=== PATIENT | male | born 1985 | race Caucasian/White ===

== ENCOUNTER 2022-12-24 12:57 | Inpatient (IN) | payer BC, MEDICAID, SELFPAY ==
[2022-12-24 13:07] VITALS: BP 132/81; PULSE 63; RESP 16; TEMP 36.4; O2SAT 100
[2022-12-24 13:15] VITALS: BMI 24.4
[2022-12-24 14:00] VITALS: BP 132/81; PULSE 63; RESP 16; TEMP 36.4; O2SAT 100
--- NOTE | 2022-12-24 14:18 | PC.NURSE ---
Patient arrived from [facility] in [place], [place] calm and cooperative. He denies current si/hi and avh. He endorses current alcohol and methamphetamine abuse. He says he drinks a fifth of whiskey daily and has used methamphetamine daily for the last 3 days. Patient states he had not drank in 4 years until 2 months ago and that he had not utilized meth since he was in high school until 3 days ago. When asked what triggered him to drink and use again he became evasive and stated it wasn't worth talking about or drinking about. He does express interest in a rehabilitation facility. Patient says he received treatment at [facility] in 2005, but that he doesn't consider it successful because it was court appointed and not his choice to go. When given report from [facility] the RN stated he had arrived with suicidal ideations with a plan to shoot himself. However, he does not express this at this time.
[2022-12-24] MEDS: LORazepam 2 mg Tablet PO ×4 (18:32→23:01)
[2022-12-24] MEDS: ondansetron 4 MG Tablet PO (18:32)
[2022-12-24] MEDS: acetaminophen 325 mg Tablet 650 MG PO (18:32)
[2022-12-24] MEDS: nicotine 21 mg Patch 1 PATCH TRANSDERMA (18:32)
[2022-12-24 19:32] VITALS: BP 145/81; PULSE 60; RESP 16; TEMP 36.8; O2SAT 99
[2022-12-24] MEDS: losartan 50 mg Tablet 100 MG PO (20:36)
[2022-12-25 06:00] VITALS: BP 129/72; PULSE 75; RESP 16; TEMP 36.6; O2SAT 97
[2022-12-25] MEDS: multivitamin therapeutic Tablet 1 TAB PO (09:26)
[2022-12-25] MEDS: thiamine 100 mg Tablet PO (09:26)
[2022-12-25] MEDS: folic acid 1 mg Tablet PO (09:26)
[2022-12-25] MEDS: duloxetine 30 mg Capsule PO (13:13)
[2022-12-25] MEDS: LORazepam 2 mg Tablet PO ×3 (13:29→20:09)
[2022-12-25] MEDS: ibuprofen 600 mg Tablet PO (13:29)
[2022-12-25 14:00] VITALS: BP 146/75; PULSE 84; RESP 16; TEMP 36.7; O2SAT 95
--- NOTE | 2022-12-25 15:54 | P.NPUHP_ITS ---
Providers/Chief Complaint Admitting Physician: Tj Pappas MD Chief Complaint: SI/ETOH HPI NPU History of Present Illness Vincent Cummings is a 37 year old male with a history of multiple inpatient hospitalizations who presented to the emergency department at [facility] with worsening depression and suicidal ideation with a plan to shoot himself with his firearm. The patient reports a history of social anxiety disorder along with episodes of depression. He had endorsed having worsening mood over the past few months with increased suicidal thoughts over the last few weeks. He reports feelings of hopelessness low energy anhedonia apathy and loss of appetite. He reports crying more frequently and reports increased social isolation. He also reported having difficulties with managing chronic anxiety stating that he often has muscle tension and difficulties falling asleep while being unable to control his worries. The patient reports having difficulties with attention and reports that he often feels tired and reports diminished appetite. He endorses low energy and reports difficulties with feeling as if he is the center of attention wherever he goes. He reports that he has never attempted to kill himself although he has made threats before. He had reported that he has been managing his anxiety and depression by drinking. He reports drinking about 1/5 of alcohol daily for over 15 years. He reports that he has had a history of severe alcohol withdrawal symptoms including shakes. He reports that he had been sober for 4 years but relapsed earlier this year. The patient reports that he has had problems with being in large crowds. He reports that he often has feelings of guilt and reports declining energy. He had reported a series of multiple medication trials that have been largely unsuccessful in managing his anxiety and depression. Inpatient psychiatric history: The patient had reported over 30 inpatient hospitalizations, previous records had indicated that he had been treated in [place] in October 2022 for depression. Outpatient psychiatric history: Patient reports receiving treatment at [facility] under Vee Sahni for medication management only. Medications: Ramelteon, Wellbutrin XL 300 mg daily, olmesartan 40 mg at night, gabapentin. The patient had reported having been noncompliant with his Wellbutrin and reports previous trials of antidepressants to treat anxiety and depression included Zoloft and Celexa with sexual side effects reported. Medical history: None Surgical history: None Allergies: No known drug allergy Family psychiatric history: Social anxiety disorder in 2 siblings. Legal history: Previous history of multiple DUI's Social history: The patient was born in [place] to an intact family. He had reported having been raised in [place] and had completed high school. He had reported having extreme anxiety throughout his school history. He had graduated from high school and had done well academically. He had completed additional technical training at [email or web address] but did not finish his degree. He has 2 siblings and is the middle child. He reported no history of sexual physical or emotional abuse. He had reported that he had begun use of alcohol as a teen and denied any other substance use. He reports that he has never been and has no children. He reports that he currently rents and lives in [place] and his family supports are in [facility]. Meds NPU Home Medications Medication Instructions Recorded Confirmed Last Taken Type olmesartan 40 mg tablet 40 mg PO BEDTIME 12/24/22 12/24/22 12/23/22 21:00 History Allergies Allergy/AdvReac Type Severity Reaction Status Date / Time No Known Allergies Allergy Verified 12/24/22 14:24 Mental Status Exam MSE Comments: The patient is a casually dressed slightly overweight white male who appeared his stated age. He had minimal eye contact. He was alert and oriented to person place time and situation. His gait appeared adequate. His hygiene was fair. There is no evidence of any abnormal involuntary motor movements appreciated. His speech was monotone in quality and normal in rate and rhythm. His mood was described as depressed. His affect was mood congruent and restricted in range. There was moderate psychomotor retardation. His thought process was linear logical and goal-directed. His thought content showed evidence of suicidal ideation with no active plan. He endorsed no homicidal ideation. He did not appear to be responding to internal stimuli. There was no clear evidence of delusional thinking. His attention span appeared fair.? His insight is poor.? His judgment is poor.? His impulse control appeared limited at this time.? Vitals/I&O/Wt Last Vital Signs Temp 98.1 F 12/25/22 14:00 Pulse 84 12/25/22 14:00 Resp 16 12/25/22 14:00 BP 146/75 12/25/22 14:00 Pulse Ox 95 12/25/22 14:00 O2 Del Method Room Air 12/25/22 14:00 Weight last 48 hrs Weight 83.915 kg A&P Assessment and plan (1) Major depressive disorder, recurrent: (2) Social anxiety disorder: (3) Generalized anxiety disorder: (4) Alcohol dependence: Plan 37-year-old white male with history of longstanding depression social anxiety disorder and generalized anxiety disorder along with significant alcohol abuse admitted with suicidal ideation. The patient may be agreeable to a dual diagnosis program focusing both patient's depression as well as his significant alcohol use. 1. Encourage individual, group and milieu therapy. 2. Recommend sober living treatment at the highest level of care to which the patient is willing to commit. 3. Continue q-15 minute checks for safety.? 4. CIWA protocol. 5. D/C wellbutrin, restart ramelteon, and initiate duloxetine to target depression/anxiety. 6. Trial of Naltrexone 50mg daily with plan to place patient on vivitrol IM. Involuntary Hold Information 96 Hour Hold: 96 Hour Involuntary Admission: No Attestations NPU Medical Necessity Statement*: Inpatient hospitalization is medically necessary and deemed to be the clinically appropriate intervention at this time. We will monitor and initiate medications while making changes as indicated. He will be in the hospital for over 2 midnights. The patient's likely length of stay is 4 to 6 days. Coding Level of Care Code Acute Code for [facility] Fwd Diagnoses Major depressive disorder, recurrent F33.9 Social anxiety disorder F40.10 Generalized anxiety disorder F41.1 Alcohol dependence F10.20
[2022-12-25] MEDS: ondansetron 4 MG Tablet PO (16:19)
[2022-12-25] MEDS: acetaminophen 325 mg Tablet 650 MG PO ×2 (16:19→20:08)
[2022-12-25 20:07] VITALS: BP 137/79; PULSE 52; RESP 16; TEMP 36.9; O2SAT 96
[2022-12-25] MEDS: losartan 50 mg Tablet 100 MG PO (20:07)
[2022-12-25] MEDS: nicotine 2 mg Gum BUCCAL (20:52)
[2022-12-26 06:00] VITALS: BP 121/54; PULSE 48; RESP 16; TEMP 36.8; O2SAT 97
[2022-12-26] MEDS: thiamine 100 mg Tablet PO (08:22)
[2022-12-26] MEDS: multivitamin therapeutic Tablet 1 TAB PO (08:22)
[2022-12-26] MEDS: folic acid 1 mg Tablet PO (08:22)
[2022-12-26] MEDS: nicotine 21 mg Patch 1 PATCH TRANSDERMA (08:28)
[2022-12-26] MEDS: ibuprofen 600 mg Tablet PO (11:11)
--- NOTE | 2022-12-26 11:52 | PC.NURSE ---
pt wanting his phone charged.
--- NOTE | 2022-12-26 11:54 | PC.NURSE ---
removed nicotine patch.
[2022-12-26 14:00] VITALS: BP 121/81; PULSE 67; RESP 16; TEMP 36.6; O2SAT 98
[2022-12-26] MEDS: nicotine 4 mg lozenge MUCOUS MEM ×4 (14:36→21:08)
--- NOTE | 2022-12-26 15:59 | W.PM.NPUPNS ---
Subjective NPU Subjective: 37-year-old white male with social anxiety disorder major depressive disorder and alcohol dependence admitted with suicidal ideation in the context of continued alcohol use. The patient had continued to withdraw off of alcohol requiring the presence of Ativan to help with withdrawal symptoms. He had been isolating in bed most of the day and had refused groups. The patient reported continued depression but reported that he was not feeling suicidal currently. The patient had endorsed a long history of depression and social isolation. He had expressed some concern about his struggles with being around others. He had described having struggles with feeling as if you were the center of attention. The patient had expressed interest in consideration for intense psychotherapy including cognitive behavioral therapy to target his anxiety and depression. Mental Status Exam MSE Comments: The patient is a casually dressed slightly overweight white male who appeared his stated age. He had minimal eye contact. He was alert and oriented to person place time and situation. His gait appeared adequate. His hygiene was fair. There is no evidence of any abnormal involuntary motor movements appreciated. His speech was monotone in quality and normal in rate and rhythm. His mood was described as depressed. His affect was mood congruent and restricted in range. There was significant psychomotor retardation. His thought process was linear logical and goal-directed. His thought content showed evidence of suicidal ideation with no active plan. He endorsed no homicidal ideation. He did not appear to be responding to internal stimuli. There was no clear evidence of delusional thinking. His attention span was fair. His insight remains poor. His judgment and impulse control remains poor. Vitals/I&O/Wt Last Vital Signs Temp 98 F 12/26/22 14:00 Pulse 67 12/26/22 14:00 Resp 16 12/26/22 14:00 BP 121/81 12/26/22 14:00 Pulse Ox 98 12/26/22 14:00 O2 Del Method Room Air 12/26/22 14:00 A&P Assessment and plan (1) Major depressive disorder, recurrent: (2) Social anxiety disorder: (3) Generalized anxiety disorder: (4) Alcohol dependence: Plan 37-year-old white male with history of longstanding depression social anxiety disorder and generalized anxiety disorder along with significant alcohol abuse admitted with suicidal ideation. The patient may be agreeable to a dual diagnosis program focusing both patient's depression as well as his significant alcohol use. 1. Encourage individual, group and milieu therapy. 2. Recommend sober living treatment at the highest level of care to which the patient is willing to commit. 3. Continue q-15 minute checks for safety.? 4. CIWA protocol. 5. Discontinued Cymbalta with patient complaining of abdominal discomfort. He has a history of multiple medication trials for treatment of depression. 6. The patient is refusing treatment for alcohol dependence with medications as he stated he did not wish to be on naltrexone.. Involuntary Hold Information 96 Hour Hold: 96 Hour Involuntary Admission: No Attestations NPU Medical Necessity Statement*: Inpatient hospitalization is medically necessary and deemed to be the clinically appropriate intervention at this time. We will monitor and initiate medications while making changes as indicated. The patient's likely length of stay is 3-5 days. Coding Level of Care Code Acute Code for g Fwd Diagnoses Major depressive disorder, recurrent F33.9 Social anxiety disorder F40.10 Generalized anxiety disorder F41.1 Alcohol dependence F10.20
[2022-12-26 19:22] VITALS: BP 158/89
[2022-12-26] MEDS: losartan 50 mg Tablet 100 MG PO (19:22)
[2022-12-26 20:23] VITALS: BP 158/86; PULSE 81; RESP 18; TEMP 36.4; O2SAT 98
[2022-12-26] MEDS: hyDROXYzine 25 mg Capsule 50 MG PO (20:35)
[2022-12-26] MEDS: trazodone 50 mg Tablet PO (21:14)
[2022-12-27 06:00] VITALS: BP 111/63; PULSE 64; RESP 15; TEMP 36.4; O2SAT 94
[2022-12-27] MEDS: folic acid 1 mg Tablet PO (09:54)
[2022-12-27] MEDS: nicotine 4 mg lozenge MUCOUS MEM ×6 (09:54→21:31)
[2022-12-27] MEDS: thiamine 100 mg Tablet PO (09:54)
[2022-12-27] MEDS: multivitamin therapeutic Tablet 1 TAB PO (09:54)
[2022-12-27 14:00] VITALS: BP 143/82; PULSE 56; RESP 16; TEMP 36.6; O2SAT 98
--- NOTE | 2022-12-27 14:58 | W.PM.NPUPNS ---
Subjective NPU Subjective: 37-year-old white male with social anxiety disorder major depressive disorder and alcohol dependence admitted with suicidal ideation in the context of continued alcohol use. The patient had reported no desire to consider inpatient substance abuse treatment despite the patient being informed that there may be some legal charges associated with alcohol use as the patient was on probation. Patient reported that he continued to feel depressed. He had reported having felt groggy from medication given to him last night for sleep. Patient continued to isolate himself on the milieu. He reported some feelings of hopelessness. He had reported that he had not been thinking about suicide. He had expressed desire to return to work. He continued to refuse going to groups. Mental Status Exam MSE Comments: The patient is a casually dressed slightly overweight white male who appeared his stated age. He had fleeting eye contact. He was alert and oriented to person place time and situation. His gait appeared adequate. His hygiene was fair. There is no evidence of any abnormal involuntary motor movements appreciated. His speech was monotone in quality and normal in rate and rhythm. His mood was described as depressed. His affect was flat. There was significant psychomotor retardation. His thought process was linear logical and goal-directed. His thought content showed evidence of suicidal ideation with no active plan. He endorsed no homicidal ideation. He did not appear to be responding to internal stimuli. There was no clear evidence of delusional thinking. His attention span was fair. His insight remains poor. His judgment and impulse control remains poor. Vitals/I&O/Wt Last Vital Signs Temp 97.5 F L 12/27/22 06:00 Pulse 64 12/27/22 06:00 Resp 15 12/27/22 06:00 BP 111/63 12/27/22 06:00 Pulse Ox 94 12/27/22 06:00 O2 Del Method Room Air 12/27/22 06:00 A&P Assessment and plan (1) Major depressive disorder, recurrent: (2) Social anxiety disorder: (3) Generalized anxiety disorder: (4) Alcohol dependence: Plan 37-year-old white male with history of longstanding depression social anxiety disorder and generalized anxiety disorder along with significant alcohol abuse admitted with suicidal ideation. The patient may be agreeable to a dual diagnosis program focusing both patient's depression as well as his significant alcohol use. 1. Encourage individual, group and milieu therapy. 2. Recommend sober living treatment at the highest level of care to which the patient is willing to commit. 3. Continue q-15 minute checks for safety.? 4. CIWA protocol. 5. He has a history of multiple medication trials for treatment of depression. He was agreeable to trial of lexapro to target anxiety and depression. 6. The patient is refusing treatment for alcohol dependence with medications as he stated he did not wish to be on naltrexone.. Involuntary Hold Information 96 Hour Hold: 96 Hour Involuntary Admission: No Attestations NPU Medical Necessity Statement*: Inpatient hospitalization is medically necessary and deemed to be the clinically appropriate intervention at this time. We will monitor and initiate medications while making changes as indicated. The patient's likely length of stay is 3-5 days. Coding Level of Care Code Acute Code for g Fwd Diagnoses Major depressive disorder, recurrent F33.9 Social anxiety disorder F40.10 Generalized anxiety disorder F41.1 Alcohol dependence F10.20
[2022-12-27] MEDS: escitalopram 10 mg Tablet PO (15:44)
--- NOTE | 2022-12-27 20:12 | PC.NURSE ---
pt aldo vs resp 18
[2022-12-27 20:27] VITALS: BP 134/88
[2022-12-27] MEDS: losartan 50 mg Tablet 100 MG PO (20:27)
[2022-12-27 20:28] VITALS: BP 134/88; PULSE 50; RESP 18; TEMP 36.3; O2SAT 100
[2022-12-27] MEDS: hyDROXYzine 25 mg Capsule 50 MG PO (21:31)
[2022-12-28 05:08] VITALS: BP 119/54; PULSE 51; RESP 14; TEMP 36.7; O2SAT 97
[2022-12-28] MEDS: nicotine 4 mg lozenge MUCOUS MEM ×7 (06:41→21:33)
[2022-12-28] MEDS: folic acid 1 mg Tablet PO (08:04)
[2022-12-28] MEDS: multivitamin therapeutic Tablet 1 TAB PO (08:04)
[2022-12-28] MEDS: ibuprofen 600 mg Tablet PO ×2 (08:05→16:08)
[2022-12-28] MEDS: thiamine 100 mg Tablet PO (08:05)
[2022-12-28] MEDS: escitalopram 10 mg Tablet PO (08:05)
[2022-12-28 14:00] VITALS: BP 130/64; PULSE 51; RESP 15; TEMP 36.8; O2SAT 99
--- NOTE | 2022-12-28 15:54 | P.NPUPN_ITS ---
Subjective NPU Subjective: 37-year-old white male with social anxiety disorder major depressive disorder and alcohol dependence admitted with suicidal ideation in the context of continued alcohol use. The patient continued to isolate himself on the milieu. He reported continued problems with social anxiety and generalized anxiety disorder. He had endorsed depressed mood. He reported that he struggles with being in groups and did not attend groups. He had reported some difficulties with falling asleep. He had reported having significant tension and continued worry. He was able to tolerate his Lexapro. He had reported no side effects from this medication. He had reported sensitivity to medications for depression and anxiety. He had expressed interest in considering alternative options for treating depression including transcranial magnetic stimulation. Mental Status Exam MSE Comments: The patient is a casually dressed slightly overweight tall white male who appeared his stated age. He had fleeting eye contact. He was alert and oriented to person place time and situation. His gait appeared adequate. His hygiene was fair. There is no evidence of any abnormal involuntary motor movements appreciated. His speech was monotone in quality and normal in rate and rhythm. His mood was described as depressed. His affect was flat. There was significant psychomotor retardation. His thought process was linear logical and goal-directed. His thought content showed no He endorsed no homicidal ideation. He did not appear to be responding to internal stimuli. There was no clear evidence of delusional thinking. His attention span was fair. His insight remains poor. His judgment and impulse control remains poor. Vitals/I&O/Wt Last Vital Signs Temp 98.3 F 12/28/22 14:00 Pulse 51 L 12/28/22 14:00 Resp 15 12/28/22 14:00 BP 130/64 12/28/22 14:00 Pulse Ox 99 12/28/22 14:00 O2 Del Method Room Air 12/28/22 05:08 A&P Assessment and plan (1) Major depressive disorder, recurrent: (2) Social anxiety disorder: (3) Generalized anxiety disorder: (4) Alcohol dependence: Plan 37-year-old white male with history of longstanding depression social anxiety disorder and generalized anxiety disorder along with significant alcohol abuse admitted with suicidal ideation. The patient may be agreeable to a dual diagnosis program focusing both patient's depression as well as his significant alcohol use. 1. Encourage individual, group and milieu therapy. 2. Recommend sober living treatment at the highest level of care to which the patient is willing to commit. 3. Continue q-15 minute checks for safety.? 4. CIWA protocol. 5. He has a history of multiple medication trials for treatment of depression. Continue Lexapro 10mg daily. 6. The patient is refusing treatment for alcohol dependence with medications as he stated he did not wish to be on naltrexone.. Involuntary Hold Information 96 Hour Hold: 96 Hour Involuntary Admission: No Attestations NPU Medical Necessity Statement*: Inpatient hospitalization is medically necessary and deemed to be the clinically appropriate intervention at this time. We will monitor and initiate medications while making changes as indicated. The patient's likely length of stay is 1-2 days. Coding Level of Care Code Acute Code for [facility] Fwd Diagnoses Major depressive disorder, recurrent F33.9 Social anxiety disorder F40.10 Generalized anxiety disorder F41.1 Alcohol dependence F10.20
[2022-12-28 19:50] VITALS: BP 122/63; PULSE 52; RESP 16; TEMP 36.6; O2SAT 98
[2022-12-28 19:58] VITALS: BP 122/63
[2022-12-28] MEDS: trazodone 50 mg Tablet PO (22:34)
[2022-12-29 06:00] VITALS: BP 118/66; PULSE 43; RESP 15; TEMP 36.6; O2SAT 97
[2022-12-29] MEDS: ibuprofen 600 mg Tablet PO (07:40)
[2022-12-29] MEDS: nicotine 4 mg lozenge MUCOUS MEM ×3 (10:07→14:31)
[2022-12-29] MEDS: multivitamin therapeutic Tablet 1 TAB PO (10:07)
[2022-12-29] MEDS: folic acid 1 mg Tablet PO (10:07)
[2022-12-29] MEDS: escitalopram 10 mg Tablet PO (10:07)
[2022-12-29] MEDS: thiamine 100 mg Tablet PO (10:07)
--- NOTE | 2022-12-29 12:20 | W.PM.NPUDCS ---
Diagnoses at Discharge Discharge Diagnosis (1) Major depressive disorder, recurrent: Status: Acute (2) Social anxiety disorder: Status: Acute (3) Generalized anxiety disorder: Status: Acute (4) Alcohol dependence: Status: Acute Reason for Visit Reason for Visit: SI/ETOH Brief History: History of Present Illness Vincent Cummings is a 37 year old male with a history of multiple inpatient hospitalizations who presented to the emergency department at [facility] with worsening depression and suicidal ideation with a plan to shoot himself with his firearm.? The patient reports a history of social anxiety disorder along with episodes of depression.? He had endorsed having worsening mood over the past few months with increased suicidal thoughts over the last few weeks.? He reports feelings of hopelessness low energy anhedonia apathy and loss of appetite.? He reports crying more frequently and reports increased social isolation.? He also reported having difficulties with managing chronic anxiety stating that he often has muscle tension and difficulties falling asleep while being unable to control his worries.? The patient reports having difficulties with attention and reports that he often feels tired and reports diminished appetite. ? He endorses low energy and reports difficulties with feeling as if he is the center of attention wherever he goes.? He reports that he has never attempted to kill himself although he has made threats before.? He had reported that he has been managing his anxiety and depression by drinking.? He reports drinking about 1/5 of alcohol daily for over 15 years.? He reports that he has had a history of severe alcohol withdrawal symptoms including shakes.? He reports that he had been sober for 4 years but relapsed earlier this year.? The patient reports that he has had problems with being in large crowds.? He reports that he often has feelings of guilt and reports declining energy.? He had reported a series of multiple medication trials that have been largely unsuccessful in managing his anxiety and depression.? Inpatient psychiatric history: The patient had reported over 30 inpatient hospitalizations, previous records had indicated that he had been treated in [place] in October 2022 for depression.? Outpatient psychiatric history: Patient reports receiving treatment at [facility] under Vee Sahni for medication management only. Medications: Ramelteon, Wellbutrin XL 300 mg daily, olmesartan 40 mg at night, gabapentin.? The patient had reported having been noncompliant with his Wellbutrin and reports previous trials of antidepressants to treat anxiety and depression included Zoloft and? Celexa with sexual side effects reported. Medical history: None Surgical history: None Allergies: No known drug allergy Family psychiatric history: Social anxiety disorder in 2 siblings. Legal history: Previous history of multiple DUI's Social history: The patient was born in [place] to an intact family.? He had reported having been raised in [place] and had completed high school.? He had reported having extreme anxiety throughout his school history.? He had graduated from high school and had done well academically.? He had completed additional technical training at [employer] but did not finish his degree.? He has 2 siblings and is the middle child.? He reported no history of sexual physical or emotional abuse.? He had reported that he had begun use of alcohol as a teen and denied any other substance use.? He reports that he has never been and has no children.? He reports that he currently rents and lives in [place] and his family supports are in [facility]. Hospital Course Hospital Course During the hospitalization, the patient had routine laboratory studies which were within normal limits except for a few outliers.? Additionally, there was a general medical evaluation which was also within normal limits and revealed no new acute processes.? At the time of discharge, lethality was denied and psychosis was resolving.? Mood and anxiety were well managed.? The patient endorsed a plan to avoid all drugs of abuse and follow up with the aftercare recommendations of the treatment team.? The patient was evaluated and deemed to be absent credible lethality and had achieved the maximum benefit from an inpatient hospitalization, and so was discharged. ?It was strongly recommended that the patient consider CBT to target severe social phobia and generalized anxiety disorder along with depression. He refused naltrexone IM to target alcohol cravings. Involuntary Hold Information 96 Hour Hold: 96 Hour Involuntary Admission: No Mental Status Exam MSE Comments: The patient is a casually dressed slightly overweight tall white male who appeared his stated age. He had intermittent eye contact. He was alert and oriented to person place time and situation. His gait appeared adequate. His hygiene was fair. There is no evidence of any abnormal involuntary motor movements appreciated. His speech was monotone in quality and normal in rate and rhythm. His mood was described as okay. His affect was less restricted on discharge. There was mild psychomotor retardation. His thought process was linear logical and goal-directed. His thought content showed no suicidal or homicidal ideation. He did not appear to be responding to internal stimuli. There was no clear evidence of delusional thinking. His attention span was fair. His insight remains limited. His judgment was improved and impulse control was better. Discharge Data Vitals: Last Vital Signs Temp 97.9 F 12/29/22 06:00 Pulse 43 L 12/29/22 06:00 Resp 15 12/29/22 06:00 BP 118/66 12/29/22 06:00 Pulse Ox 97 12/29/22 06:00 O2 Del Method Room Air 12/29/22 06:00 Discharge Plan Discharge Patient Disposition: Home Condition: Stable Prescriptions: New escitalopram oxalate 10 mg Tablet 10 mg PO DAILY 30 Days Qty: 30 1RF Continued olmesartan 40 mg tablet 40 mg PO BEDTIME Discharge Orders: Discharge Order (Routine); Ordered 12/29/22 Ordered By: Tj Pappas Referrals: [facility] [Other] - 01/01/23 11:30 am (Follow up with Vee Muniz LCSW) Discharge Diet: Usual diet Discharge Activity: Resume usual activity Patient Instructions: Opioid Safety Discharge Attestations NPU Time Spent in Discharge Care*: less than 30 min Specific Discharge Activities: Specific discharge activities: educating patient, discussing with showcase maker/social workers/dc planners and documenting/other paperwork Coding Level of Care Code Acute Chg FW DC note Diagnoses Major depressive disorder, recurrent F33.9 Social anxiety disorder F40.10 Generalized anxiety disorder F41.1 Alcohol dependence F10.20
[2022-12-29 12:52] VITALS: BP 118/66; PULSE 43; RESP 15; TEMP 36.6; O2SAT 97
[2022-12-29 14:00] VITALS: BP 122/71; PULSE 51; RESP 16; TEMP 36.8; O2SAT 97
== END 2022-12-29 15:40 | disposition home or self-care (01) | DRG 885 ==
PROVIDERS: Admitting Provider Psychiatry & Neurology Psychiatry; Visit Provider Psychiatry & Neurology Psychiatry
DX: F33.9 Major depressive disorder, recurrent, unspecified (principal); R45.851 Suicidal ideations; F40.10 Social phobia, unspecified; F41.1 Generalized anxiety disorder; F10.20 Alcohol dependence, uncomplicated; T43.296A Underdosing of other antidepressants, initial encounter; Z91.128 Patient's intentional underdosing of medication regimen for other reason
CPT/HCPCS: 97150; 97165; Q0162